=== PATIENT | female | born 1955 | race Caucasian/White ===

== ENCOUNTER 2016-04-24 21:44 | Emergency (ER) | payer BC ==
[2016-04-24 21:56] VITALS: BP 130/70
--- NOTE | 2016-04-24 22:12 | UC ---
Brian Sher Billy, scribed for Evelyn Gauthier MD on 04/24/16 at 2208 . Eye Complaint HPI - HPI Summary HPI Summary: Patient is a 60 year-old female coming to [facility] unaccompanied for evaluation of bilateral eye redness and discharge since yesterday. Her eyes are both painful and itchy. Her vision is blurry secondary to the clear, watery discharge. Patient denies any known trauma, scratching, or foreign bodies. She also states that she has has cold symptoms such as sore throat and hoarse voice. She reports subjective fever and chills yesterday, but none today. Patient does not wear contact lenses. Patient denies any contact with sick individuals with any similar symptoms. - History of Current Complaint Chief Complaint: UCEye Stated Complaint: EYE IRRITATION Time Seen by Provider: 04/24/16 21:52 Hx Obtained From: Patient Onset/Duration: Gradual Onset, Lasting Days, Still Present Timing: Constant Severity Initially: Moderate Severity Currently: Moderate Pain Intensity: 9 Pain Scale Used: 0-10 Numeric Aggravating Factor(s): Nothing Alleviating Factor(s): Nothing Associated Signs And Symptoms: Positive: Drainage (Clear), Vision Impairment Bilateral - blurred vision secondary to drainage, Fever - yesterday; none today - Allergies/Home Medications Allergies/Adverse Reactions: Allergies Allergy/AdvReac Type Severity Reaction Status Date / Time No Known Allergies Allergy Verified 04/24/16 21:56 Home Medications: Home Medications Conjugated Estrogens TAB* [Premarin TAB*] 1 04/24/16 [History] Multiple Vitamin [Multi Vitamin] 04/24/16 [History] buPROPion SR TAB* [Wellbutrin SR TAB*] 04/24/16 [History] PMH/Surg Hx/FS Hx/Imm Hx Endocrine History Of: Denies: Diabetes Cardiovascular History Of: Denies: Hypertension, Pacemaker/ICD GI/ History Of: Denies: Renal Disease Cancer History Of: Denies: Breast Cancer - Surgical History Surgical History: Yes Surgery Procedure, Year, and Place: 3 C SECTION; APPENDECTOMY - Family History Known Family History: Positive: Diabetes - Social History Occupation: Retired Alcohol Use: Occasionally Substance Use Type: None Smoking Status (MU): Never Smoked Tobacco Review of Systems Constitutional: Fever - yesterday; none today, Chills - yesterday; none today Skin: Negative Eyes: Blurred Vision, Drainage, Eye Redness ENT: Sore Throat, Nasal Discharge Respiratory: Negative Cardiovascular: Negative Gastrointestinal: Negative Genitourinary: Negative Motor: Negative Neurovascular: Negative Musculoskeletal: Negative Neurological: Negative Psychological: Negative All Other Systems Reviewed And Are Negative: Yes Physical Exam Triage Information Reviewed: Yes Appearance: Well-Appearing Vital Signs: Initial Vital Signs Temp 98.5 F 04/24/16 21:50 Pulse 75 04/24/16 21:50 Resp 18 04/24/16 21:50 BP 130/70 04/24/16 21:50 Pulse Ox 97 04/24/16 21:50 Vital Signs Reviewed: Yes Eyes: Positive: Conjunctiva Inflamed - Bilateral conjunctiva medial injection., Discharge - Watery discharge without crusting., Other: - PERRL ENT: Positive: Pharynx normal, Nasal drainage - Postnasal drip, TMs normal, Muffled/hoarse voice. Negative: TM bulging, TM dull, TM red, Tonsillar exudate Neck: Positive: Supple, Nontender, No Lymphadenopathy Respiratory: Positive: Lungs clear, Normal breath sounds, No respiratory distress, No accessory muscle use Cardiovascular: Positive: RRR, Pulses Normal Abdomen Description: Positive: Nontender, Soft Musculoskeletal Exam: Normal Neurological Exam: Normal Psychological Exam: Normal Skin Exam: Normal Eye Complaint Course/Dx - Differential Dx/Diagnosis Differential Diagnosis/HQI/PQRI: Conjunctivitis Provider Diagnoses: b/l conjunctivitis, mild viral URI Discharge - Discharge Plan Condition: Stable Disposition: HOME Prescriptions: Gentamicin 0.3% OPHTH.SOLN* 1 drop BOTH EYES Q4H #1 btl Patient Education Materials: Upper Respiratory Infection (ED), Conjunctivitis ( ED) Referrals: Javier Arriaga DO [Primary Care Provider] - 3 Days Additional Instructions: Cool compresses to eyes. Do not use eye make up for at least 5 days and your symptoms resolve. The documentation as recorded by the Brian douglas Billy accurately reflects the service I personally performed and the decisions made by , Evelyn Gauthier MD.
== END 2016-04-24 22:10 | disposition home or self-care (01) ==
LOC: UCEAST 21:44
DX: H10.33 Unspecified acute conjunctivitis, bilateral (principal); J06.9 Acute upper respiratory infection, unspecified
CPT/HCPCS: 99212; G0463

== ENCOUNTER 2016-05-04 18:18 | Emergency (ER) | payer BC ==
--- NOTE | 2016-05-04 19:34 | UC ---
Throat Pain/Nasal Nelson HPI - HPI Summary HPI Summary: Pt c/o sore throat, bilateral eye redness and "crusted" eye this morning. Pt was seen 1 week ago with c/o of nasal congestion, sinus pressure X 1 week and conjunctivitis and given antibacterial eye drops. Pt reports that sore throat and nasal congestion has worsened and eye redness has not improved. - History of Current Complaint Chief Complaint: UCRespiratory Stated Complaint: SORE THROAT Time Seen by Provider: 05/04/16 19:12 Hx Obtained From: Patient ?: No Onset/Duration: Gradual Onset, Lasting Days - 10 days Severity: Mild Cough: Nonproductive Associated Signs & Symptoms: Positive: Dysphagia, Sinus Discomfort - Epiglottits Risk Factors Epiglottis Risk Factors: Negative - Allergies/Home Medications Allergies/Adverse Reactions: Allergies Allergy/AdvReac Type Severity Reaction Status Date / Time No Known Allergies Allergy Verified 04/24/16 21:56 PMH/Surg Hx/FS Hx/Imm Hx Previously Healthy: Yes Endocrine History Of: Denies: Diabetes Cardiovascular History Of: Denies: Hypertension, Pacemaker/ICD GI/ History Of: Denies: Renal Disease Cancer History Of: Denies: Breast Cancer - Surgical History Surgical History: Yes Surgery Procedure, Year, and Place: 3 C SECTION; APPENDECTOMY - Family History Known Family History: Positive: Diabetes - Social History Alcohol Use: Weekly Substance Use Type: None Smoking Status (MU): Never Smoked Tobacco Review of Systems Constitutional: Fatigue Skin: Negative Eyes: Negative ENT: Sore Throat, Other - nasal congestion, maxillary sinus tenderness, PND Respiratory: Cough Cardiovascular: Negative Gastrointestinal: Negative Genitourinary: Negative Motor: Negative Neurovascular: Negative Musculoskeletal: Myalgia Neurological: Negative Psychological: Negative All Other Systems Reviewed And Are Negative: Yes Physical Exam Triage Information Reviewed: Yes Appearance: Ill-Appearing Vital Signs: Initial Vital Signs Temp 97.7 F 05/04/16 18:54 Pulse 88 05/04/16 18:54 Resp 18 05/04/16 18:54 Pulse Ox 99 05/04/16 18:54 Eye Exam: Normal ENT Exam: Other ENT: Positive: Nasal congestion, TM bulging - bilateral, Other: - maxillary sinus tenderness Neck exam: Normal Respiratory Exam: Normal Cardiovascular Exam: Normal Musculoskeletal Exam: Normal Neurological Exam: Normal Psychological Exam: Normal Skin Exam: Normal Throat Pain/Nasal Course/Dx - Differential Dx/Diagnosis Differential Diagnosis/HQI/PQRI: Influenza, Sinusitis, URI Provider Diagnoses: Sinusitis Discharge - Discharge Plan Condition: Stable Disposition: HOME Prescriptions: Amoxicillin (*) [Amoxicillin 875 MG (*)] 875 mg PO BID #20 tab Patient Education Materials: Sinusitis (ED) Referrals: Javier Arriaga DO [Primary Care Provider] - Additional Instructions: Please follow up with your PCP or return to clinic. Your blood pressure is slightly elevated at today's visit. Please follow up with your PCP regarding this finding.
== END 2016-05-04 19:33 | disposition home or self-care (01) ==
LOC: UCEAST 18:18
DX: J32.9 Chronic sinusitis, unspecified (principal)
CPT/HCPCS: 99212; G0463

== ENCOUNTER 2017-01-26 07:26 | Emergency (ER) | payer BC ==
[2017-01-26 07:42] VITALS: BP 126/86
--- NOTE | 2017-01-26 08:07 | UC ---
Respiratory Complaint HPI - HPI Summary HPI Summary: SEVERAL WEEKS OF URI SX - COUGH AND CONGESTION. DEVELOPED SINUS PAIN AND PRESSURE ABOUT 10 DAYS AGO. FEVER TEMP 101 - 3 DAYS AGO. PT HAS PERSISTENT COUGH AND NASAL DRAINAGE WITH LEFT FACIAL PAIN. - History of Current Complaint Chief Complaint: UCRespiratory Stated Complaint: RESP ISSUE Time Seen by Provider: 01/26/17 07:52 Hx Obtained From: Patient Onset/Duration: Gradual Onset, Lasting Weeks, Still Present Timing: Constant Severity Initially: Moderate Severity Currently: Moderate Pain Intensity: 8 Pain Scale Used: 0-10 Numeric Character: Cough: Nonproductive Aggravating Factors: Nothing Alleviating Factors: Nothing Associated Signs And Symptoms: Positive: Fever, URI, Nasal Congestion, Sinus Discomfort. Negative: Dyspnea, Wheezing - Allergies/Home Medications Allergies/Adverse Reactions: Allergies Allergy/AdvReac Type Severity Reaction Status Date / Time Trazodone Allergy Trouble Verified 01/26/17 07:37 breathing PMH/Surg Hx/FS Hx/Imm Hx Previously Healthy: Yes - Surgical History Surgical History: Yes Surgery Procedure, Year, and Place: 3 C SECTION; APPENDECTOMY - Family History Known Family History: Positive: Diabetes Negative: Hypertension - Social History Alcohol Use: Weekly Substance Use Type: None Smoking Status (MU): Never Smoked Tobacco Review of Systems Constitutional: Fever, Fatigue ENT: Nasal Discharge Respiratory: Cough Cardiovascular: Negative Gastrointestinal: Negative Neurological: Headache All Other Systems Reviewed And Are Negative: Yes Physical Exam Triage Information Reviewed: Yes Appearance: Well-Appearing, No Pain Distress, Well-Nourished Vital Signs: Initial Vital Signs Temp 98 F 01/26/17 07:38 Pulse 92 01/26/17 07:38 Resp 16 01/26/17 07:38 BP 126/86 01/26/17 07:38 Pulse Ox 100 01/26/17 07:38 Vital Signs Reviewed: Yes Eyes: Positive: Conjunctiva Clear ENT: Positive: Hearing grossly normal, Pharynx normal, TMs normal Neck: Positive: Supple, Nontender, No Lymphadenopathy Respiratory Exam: Normal Cardiovascular Exam: Normal Abdomen Description: Positive: Soft Musculoskeletal: Positive: No Edema Neurological: Positive: Alert Psychological: Positive: Age Appropriate Behavior Skin: Negative: rashes UC Diagnostic Evaluation - Laboratory O2 Sat by Pulse Oximetry: 100 Respiratory Course/Dx - Differential Dx/Diagnosis Provider Diagnoses: ACUTE SINUSITIS Discharge - Discharge Plan Condition: Stable Disposition: HOME Prescriptions: Amoxicillin/Clavulanate TAB* [Augmentin TAB 875*] 875 mg PO BID #20 tab Guaifenesin-Codeine [Codeine/Guaifenesin 100-10 mg/5Ml] 5 - 10 ml PO Q6H PRN # 150 ml MDD 40ML PRN Reason: Cough Patient Education Materials: Sinusitis (ED) Referrals: Javier Arriaga DO [Primary Care Provider] - If Needed Additional Instructions: BE SURE TO TAKE ANTIBIOTIC FOR THE FULL COURSE. REST, HYDRATE, OTC MEDS NEEDED. WILL ALSO TREAT WITH COUGH MEDICINE. SEEK FOLLOW-UP WITH YOUR PCP IF YOU ARE NOT IMPROVING OVER THE NEXT 1-2 WEEKS. TRY OTC AFRIN FOR NASAL CONGESTION. OKAY TO USE 2-3 SPRAYS IN EACH NOSTRIL UP TO 2 TIMES DAILY. DO NOT USE FOR MORE THAN 3-4 CONSECUTIVE DAYS TO PREVENT DEVELOPING REBOUND CONGESTION.
== END 2017-01-26 08:17 | disposition home or self-care (01) ==
LOC: UCEAST 07:26
DX: J01.90 Acute sinusitis, unspecified (principal); Z88.8 Allergy status to other drugs, medicaments and biological substances
CPT/HCPCS: 99212; G0463